=== PATIENT | male | born 1965 | race Hispanic/Latino ===

== ENCOUNTER 2018-03-08 20:24 | Emergency (ER) | payer BC ==
[~2018-03-08] VITALS: Ht 190.5 cm; Wt 139.1 kg
[~2018-03-08 20:24] MED LIST: Z.0.ALLOPURINOL100 M MT; Z.0.INDOMETHACIN50 M MT
[2018-03-08] MEDS ORDERED: GLIPIZIDE5 MG PO (20:46)
[2018-03-08] MEDS ORDERED: FENOFIBRATE145 MG (20:46)
[2018-03-08] MEDS ORDERED: METFORMIN HCL500 MG PO (20:46)
[2018-03-08] MEDS ORDERED: ATORVASTATIN CA20 MG PO (20:46)
[2018-03-08] MEDS ORDERED: FLUORESCEIN SOD(OPTH) 1 MG STRP OP ONE (21:00)
[2018-03-08] MEDS ORDERED: TETRACAINE HCL 0.5% OPTH SOLN 4 ML BTL OP ONE (21:00)
[2018-03-08] MEDS ORDERED: ERYTHROMYCIN (OPTH) 3.5 GM OINT OP ONE (21:00)
[2018-03-08] MEDS ORDERED: TETANUS/DIPHTHERIA TOX ADULT 0.5 ML SYR IM ONE (21:00)
== END 2018-03-08 21:10 | disposition home or self-care (01) ==
LOC: FSED 20:24
DX: S05.01XA Injury of conjunctiva and corneal abrasion without foreign body, right eye, initial encounter (principal); X58.XXXA Exposure to other specified factors, initial encounter; Y99.0 Civilian activity done for income or pay; E11.9 Type 2 diabetes mellitus without complications; Z79.84 Long term (current) use of oral hypoglycemic drugs; E78.5 Hyperlipidemia, unspecified
CPT/HCPCS: 90714; 99282

== ENCOUNTER 2019-02-16 16:48 | Outpatient (RCR) | payer BC ==
[~2019-02-16 16:48] MED LIST changes: +ATORVASTATIN CA20 MG PO; +FENOFIBRATE145 MG; +GLIPIZIDE5 MG PO; +METFORMIN HCL500 MG PO
== END 2019-02-19 ==
LOC: PT 16:48
PROVIDERS: ATTEND Orthopaedic Surgery
DX: M70.61 Trochanteric bursitis, right hip (principal); M25.851 Other specified joint disorders, right hip

== ENCOUNTER 2019-03-03 03:39 | Inpatient (IN) | payer BC ==
[~2019-03-03] VITALS: Ht 195.6 cm; Wt 132.9 kg
[2019-03-03] MEDS ORDERED: SODIUM CHLORIDE 0.9% 1000ML 1,000 ML IV STA (03:46)
[2019-03-03] MEDS ORDERED: ONDANSETRON HCL INJ 2MG/ML 2ML 2 MG/ML VIAL IV STA ×2 (03:46→05:43)
[2019-03-03] MEDS ORDERED: MORPHINE SULFATE INJ 4 MG/ML INJ 1ML IV STA (03:46)
[2019-03-03] MEDS ORDERED: PANTOPRAZOLE 40 MG 10ML VIAL IV STA (03:46)
[2019-03-03] MEDS ORDERED: PANTOPRAZOLE 40 MG 10ML VIAL ONE (03:55)
[2019-03-03] MEDS ORDERED: MORPHINE SULFATE INJ 4 MG/ML INJ 1ML ONE (03:55)
[2019-03-03] MEDS ORDERED: ONDANSETRON HCL INJ 2MG/ML 2ML 2 MG/ML VIAL ONE ×2 (03:55→05:47)
[2019-03-03 04:06] LABS: BASOPHILS # (AUTO) 0.1 (0.0-0.1); BASOPHILS % 0.7 % (0.0-1.0); BILIRUBIN,URINE NEGATIVE (NEGATIVE); CLARITY,URINE CLEAR (CLEAR); COLOR,URINE YELLOW (YELLOW); EOSINOPHILS # (AUTO) 0.1 (0.0-0.4); EOSINOPHILS % 0.9 % (0.0-6.0); HEMATOCRIT 45.5 % (38.2-49.6); KETONES,URINE NEGATIVE (NEGATIVE); LEUKOCYTE ESTERASE ,URINE NEGATIVE (NEGATIVE); LYMPHOCYTES # (AUTO) 1.5 (1.0-3.2); LYMPHOCYTES % 12.3 % (18.0-39.1); MEAN CORPUSCULAR HEMOGLOBIN 31.1 pg (28-32); MEAN CORPUSCULAR HGB CONC 35.2 g/dL (31-35); MEAN CORPUSCULAR VOLUME 88.5 fL (81-99); MONOCYTES # (AUTO) 0.9 (0.2-0.8); MONOCYTES % 6.9 % (4.4-11.3); NEUTROPHILS # (AUTO) 9.7 (2.1-6.9); NEUTROPHILS % 78.7 % (38.7-80.0); NITRITE,URINE NEGATIVE (NEGATIVE); PLATELET COUNT 250 x10e3/uL (140-360); PROTEIN,URINE DIPSTICK NEGATIVE (NEGATIVE); RED BLOOD COUNT 5.14 x10e6/uL (4.3-5.7); RED CELL DISTRIBUTION WIDTH 12.6 % (11.7-14.4); URINE UROBILINOGEN 0.2 mg/dL (0.2 - 1)
[2019-03-03 04:13] LABS: INR 0.88; PARTIAL THROMBOPLASTIN TIME 32.8 seconds (23.8-35.5); PROTHROMBIN TIME 12.4 seconds (11.9-14.5)
[2019-03-03 04:18] LABS: BACTERIA,URINE RARE /HPF; EPITHELIAL CELLS,URINE RARE /LPF; RBC,URINE 0-5 /HPF (0-5); WBC,URINE (MAN) 0-5 /HPF (0-5)
[2019-03-03 04:21] LABS: ALANINE AMINOTRANSFERASE 23 IU/L (0-55); ALBUMIN 3.9 g/dL (3.5-5.0); ALBUMIN/GLOBULIN RATIO 1.2 (0.8-2.0); ALKALINE PHOSPHATASE 112 IU/L (40-150); AMYLASE 66 U/L (25-125); ANION GAP 11.7 mmol/L (8-16); BLOOD UREA NITROGEN 14 mg/dL (7-26); BUN/CREATININE RATIO 14 (6-25); CALCIUM 9.6 mg/dL (8.4-10.2); CARBON DIOXIDE 20 mmol/L (22-29); CHLORIDE 106 mmol/L (98-107); CREATINE KINASE 206 IU/L (30-200); EST GLOMERULAR FILTRATION RATE > 60 ML/MIN (60-); GLUCOSE 172 mg/dL (74-118); LIPASE 28 U/L (8-78); MAGNESIUM 2.3 MG/DL (1.3-2.1); POTASSIUM 3.7 mmol/L (3.5-5.1); SODIUM 134 mmol/L (136-145)
[2019-03-03] MEDS ORDERED: LIDOCAINE VISC 2% SOLN 15 ML UDC PO ONE (05:15)
[2019-03-03] MEDS ORDERED: BELLADONNA ALK/PHENOBARBITAL 5 ML UDC PO ONE (05:15)
[2019-03-03] MEDS ORDERED: MAGNESIUM/ALUMINUM/SIMETHICONE 30 ML UDC PO ONE (05:15)
--- NOTE | 2019-03-03 05:20 | Diagnostic Imaging Report ---
EXAMINATION: CHEST SINGLE (PORTABLE) INDICATION: Pain. COMPARISON: None FINDINGS: TUBES and LINES: None. LUNGS: Lungs are well inflated. Lungs are clear. There is no evidence of pneumonia or pulmonary edema. PLEURA: No pleural effusion or pneumothorax. HEART AND MEDIASTINUM: The cardiomediastinal silhouette is unremarkable. BONES AND SOFT TISSUES: No acute osseous lesion. Soft tissues are unremarkable. UPPER ABDOMEN: No free air under the diaphragm. IMPRESSION: No acute thoracic abnormality. Signed by: Dr. Javan Green M.D. on 03/03/2019 5:17 AM
--- NOTE | 2019-03-03 05:33 | Diagnostic Imaging Report ---
EXAM: CT Abdomen and Pelvis WITH contrast INDICATION: Right upper quadrant pain. COMPARISON: None. TECHNIQUE: Abdomen and pelvis were scanned utilizing a multidetector helical scanner from the lung base to the pubic symphysis after administration of IV contrast. Coronal and sagittal reformations were obtained. Routine protocol was performed. Scan was performed when during portal venous phase. IV CONTRAST: 100 cc Isovue-370 ORAL CONTRAST: Water RADIATION DOSE: Total DLP: 912.41 mGy*cm Estimated effective dose: (DLP x 0.015 x size factor) mSv COMPLICATIONS: None FINDINGS: LINES and TUBES: None. LOWER THORAX: Unremarkable HEPATOBILIARY: The liver measures 24 cm in length. The liver is mildly diffuse hypodense compared to the spleen, consistent with diffuse hepatic diffuse hepatic steatosis. No focal hepatic lesions. No biliary ductal dilation. GALLBLADDER: No radio-opaque stones or sludge. No wall thickening. SPLEEN: No splenomegaly. PANCREAS: No focal masses or ductal dilatation. ADRENALS: No adrenal nodules KIDNEYS/URETERS: Kidneys enhance symmetrically. No hydronephrosis. 1.1 cm low-attenuation lesion in the posterior interpolar region of the left kidney on image 48 consistent with a cyst. No stones. GI TRACT: No abnormal distention, wall thickening, or evidence of bowel obstruction. The appendix is mildly prominent measuring up to 1.1 cm in diameter with ill-defined wall; it contains 2 appendicoliths, and is associated with mild surrounding fat stranding; findings suggestive of early acute appendicitis. PELVIC ORGANS/BLADDER: Unremarkable. LYMPH NODES: No lymphadenopathy. VESSELS: Unremarkable. PERITONEUM / RETROPERITONEUM: No free air or fluid. BONES: There are degenerative changes in the lumbar spine. SOFT TISSUES: Unremarkable. IMPRESSION: 1. Findings suggestive of early acute appendicitis. No abscess formation. Recommend surgical consultation. Signed by: Dr. Javan Green M.D. on 03/03/2019 5:30 AM
[2019-03-03] MEDS ORDERED: HYDROMORPHONE 1MG/1ML INJ IV STA (05:43)
[2019-03-03] MEDS ORDERED: HYDROMORPHONE 2MG/ML 2 MG/ML ML ONE (05:46)
--- NOTE | 2019-03-03 05:50 | NUR ---
PT CONT TO COMPLAIN OF PAIN, AWARE, RECIEVED ORDERS FOR DILAUDID. MEDICATED PER ORDERS, APPENDICITIS ON CT, MD INST NPO AND NOT TO GIVE GI COCKTAIL
--- OUTSIDE RECORDS SUMMARY | 2019-03-03 05:59 | XMS REPORT ---
Author Author [facility] Address Unknown Phone Unavailable Care Team Providers Care Title Searcher Name Role Phone Sean LOPEZ Unavailable Unavailable Problems This patient has no known problems. Allergies, Adverse Reactions, Alerts This patient has no known allergies or adverse reactions. Medications This patient has no known medications. Results Test Description Test Time Test Comments Text Results Atomic Results Result Comments CHEST SINGLE (PORTABLE) 2019-03-03 05:17:00 [facility] [address] [place] [address] Patient Name: ANKIT CHURCH MR #: [id number] : 1965 Age/Sex: 53/M Req #: [id number] Adm Physician: Ordered by: ALONDRA LOPEZ MD Report #: [id number] Location: ER Room/Bed: Procedure: [id number] DX/CHEST SINGLE (PORTABLE) Exam Date: 03/03/19 Exam Time: 0445 REPORT STATUS: Signed EXAMINATION: CHEST SINGLE (PORTABLE) INDICATI ON: Pain. COMPARISON: None FINDINGS: TUBES and LINES: None. LUNGS: Lungs are well inflated. Lungs are clear. There is no evidence of pneumonia or pulmonary edema. PLEURA: No pleural effusion or pneumothorax. HEART AND MEDIASTINUM: The cardiomediastinal silhouette is unremarkable. BONES AND SOFT TISSUES: No acute osseous lesion. Soft tissues are unremarkable. UPPER ABDOMEN: No free air under the diaphragm. IMPRESSION: No acute thoracic abnormality. Signed by: Dr. Javan Green M.D. on 03/03/2019 5:17 AM Dictated By: QUIQUE GREEN MD, MD 6 Transcribed By: SERGEY on 03/03/19516 COPY TO: ALONDRA LOPEZ MD CT ABDOMEN/PELVIS W 2019-03-03 05:17:00 [place] [address] Patient Name: ANKIT CHURCH MR #: [id number] : 1965 Age/Sex: 53/M Req #: [id number] Adm Physician: Ordered by: ALONDRA LOPEZ MD Report #: [id number] Location: ER Room/Bed: Procedure: CT/CT ABDOMEN/PELVIS W Exam Date: 03/03/19 Exam Time: 0440 REPORT STATUS: Signed EXAM: CT Abdomen and Pelvis WITH contrast INDICATION: Right upper quadrant pain. COMPARISON: None. TECHNIQUE: Abdomen and pelvis were scanned utilizing a multidetector helical scanner from the lung base to the pubic symphysis after administration of IV contrast. Coronal and sagittal reformations were obtained. Routine protocol was performed. Scan was performed when during portal venous phase. IV CONTRAST: 100 cc Isovue-370 ORAL CONTRAST: Water RADIATION DOSE: Total DLP: 912.41 mGy*cm Estimated effective dose: (DLP x 0.015 x size factor) mSv COMPLICATIONS: None FINDINGS: LINES and TUBES: None. LOWER THORAX: Unremarkable HEPATOBILIARY: The liver measures 24 cm in length. The liver is mildly diffuse hypodense compared to the spleen, consistent with diffuse hepatic diffuse hepatic steatosis. No focal hepatic lesions. No biliary ductal dilation. GALLBLADDER: No radio- opaque stones or sludge. No wall thickening. SPLEEN: No splenomegaly. PANCREAS: No focal masses or ductal dilatation. ADRENALS: No adrenal nodules KIDNEYS/URETERS: Kidneys enhance symmetrically. No hydronephrosis. 1.1 cm low-attenuation lesion in the posterior interpolar region of the left kidney on image 48 consistent with a cyst. No stones. GI TRACT: No abnormal distention, wall thickening, or evidence of bowel obstruction. The appendix is mildly prominent measuring up to 1.1 cm in diameter with ill-defined wall; it contains 2 appendicoliths, and is associated with mild surrounding fat stranding; findings suggestive of early acute appendicitis. PELVIC ORGANS/BLADDER: Unremarkable. LYMPH NODES: No lymphadenopathy. VESSELS: Unremarkable. PERITONEUM / RETROPERITONEUM: No free air or fluid. BONES: There are degenerative changes in the lumbar spine. SOFT TISSUES: Unremarkable. IMPRESSION: 1. Findings suggestive of early acute appendicitis. No abscess formation. Recommend surgical consultation. Signed by: Dr. Javan Green M.D. on 03/03/2019 5:30 AM Dictated By: QUIQUE GREEN MD, MD 9 Transcribed By: SERGEY on 03/03/19529 COPY TO: ALONDRA LOPEZ MD
[2019-03-03] MEDS ORDERED: HYDROMORPHONE 1MG/1ML INJ IV PRN (06:00)
[2019-03-03] MEDS ORDERED: ONDANSETRON HCL INJ 2MG/ML 2ML 2 MG/ML VIAL IV PRN (06:00)
[2019-03-03] MEDS ORDERED: DEXTROSE 50% SYRINGE 50 ML IV PRN (06:00)
[2019-03-03] MEDS ORDERED: SODIUM CHLORIDE 0.9% 1000ML 1,000 ML ONE (06:03)
[2019-03-03] MEDS ORDERED: IOPAMIDOL 370 MG/ML 200 ML INFUS..BTL INJ ONE (06:05)
[2019-03-03] MEDS ORDERED: SODIUM CHLORIDE 0.9% 50ML 50 ML ONE (06:05)
[2019-03-03] MEDS: PIPER-TAZ 3.375 GM 50 ML IV SCH ×3 (06:10→18:00)
[2019-03-03] MEDS: SODIUM CHLORIDE 0.9% 1000ML 1,000 ML IV SCH ×2 (06:10→13:49)
--- NOTE | 2019-03-03 06:15 | NUR ---
Patient received via stretcher from ER. AAO x 4. Patient had no complaints of pain. No signs of respiratory distress. Patient oriented to room, call light and plan of care. Fall precautions implemented. Patient instructed to call for assistance when needed. Call light within reach.
[2019-03-03 06:22] VITALS: BP 169/90
--- NOTE | 2019-03-03 06:40 | NUR ---
SPOKE TO EMETERIO WITH SIZE GRIER RENTALS. SPECIALITY BED ORDERED FOR PATIENT WHO WAS VERY TALL. CONFIRMATION#[id number]. BED TO BE DELIVERED TODAY 03/03/19. DELIVERY TO INCLUDE OPERATION INSTRUCTION.
--- NOTE | 2019-03-03 07:10 | NUR ---
Dr.D. Macdonald notified and aware of "Stat Consult". Reason: Appendicitis.
[2019-03-03] MEDS: INSULIN LISPRO 100 UNIT/1 ML 3ML VIAL SQ SCH ×4 (07:30→21:00)
[2019-03-03 08:31] VITALS: BP 145/77
[2019-03-03 11:10] VITALS: BP 145/77
[2019-03-03 11:55] VITALS: BP 148/84
[2019-03-03] MEDS ORDERED: MORPHINE SULFATE INJ 10 MG/ML ONE (13:43)
[2019-03-03] MEDS ORDERED: MIDAZOLAM HCL 2 MG/2 ML VIAL ONE (13:43)
[2019-03-03] MEDS ORDERED: FENTANYL CITRATE/PF 100MCG/2 ML INJ ONE ×2 (13:43→21:21)
[2019-03-03] MEDS ORDERED: BUPIVACAINE 0.25%/EPI 30ML SDV INJ ONE (14:59)
[2019-03-03 16:20] VITALS: BP 162/96
[2019-03-03] MEDS ORDERED: ACETAMINOPHEN 325 MG TAB PO PRN (19:00)
[2019-03-03 20:00] VITALS: BP 119/58
--- NOTE | 2019-03-03 21:34 | NUR ---
received pt from PACU, awake and alert, MAMI drain to right lower quadrant with small amount of serosangunious fluid in container, 2 trochar sites to abdomen with bandages in place C/D/I, pt c/o pain 06/01 to abdomen, pain medication on board, bed in lowest and locked position, family at bedside, call light in reach
[2019-03-03] MEDS: HYDROMORPHONE 2MG/ML 2 MG/ML ML IV PRN (21:52)
--- NOTE | 2019-03-03 23:33 | Consultation ---
DATE OF CONSULTATION: 03/03/2019 CHIEF COMPLAINT: Abdominal pain. HISTORY OF PRESENT ILLNESS: The patient is a 53-year-old male with 1-day history of pain in lower abdomen with nausea, vomiting, and subjective fever. No diarrhea. PAST MEDICAL HISTORY: Positive for diabetes. ALLERGIES: HE HAS NO DRUG ALLERGIES. Social. HABITS: He denies smoking or alcohol abuse. REVIEW OF SYSTEMS: No chest pain, shortness of breath, or cough. PHYSICAL EXAMINATION: VITAL SIGNS: Stable. He is afebrile. GENERAL: The patient is awake, alert, in mild to moderate discomfort. HEENT: Sclerae nonicteric. NECK: Supple. LUNGS: Clear. HEART: Regular rate and rhythm. ABDOMEN: Soft with some guarding tenderness in the lower abdomen with mild rebound in the right and left lower quadrant. LABORATORY DATA: The patient's creatinine is 1.0. Liver function tests within normal limits. White cell count is 12 and INR of 0.8. CT scan show appendicolith and fat stranding around the appendix, which is dilated. ASSESSMENT: Acute appendicitis. PLAN: Laparoscopic appendectomy. Attendant risks discussed. Caleb Macdonald MD DNL/MODL /[id number]
[2019-03-04] VITALS (9 sets, daily range): BP systolic 122–145; BP diastolic 73–89
[2019-03-04] MEDS: PIPER-TAZ 3.375 GM 50 ML IV SCH ×4 (00:15→18:29)
[2019-03-04] MEDS: HYDROMORPHONE 2MG/ML 2 MG/ML ML IV PRN ×4 (02:06→19:30)
[2019-03-04] MEDS: SODIUM CHLORIDE 0.9% 1000ML 1,000 ML IV SCH ×2 (02:07→05:49)
--- NOTE | 2019-03-04 02:18 | History and Physical ---
HISTORY OF PRESENT ILLNESS: A 53-year-old male with past medical history positive for hypertension and diabetes, came here with abdominal pain. He was diagnosed with acute appendicitis, going for surgery right now. REVIEW OF SYSTEMS: CARDIOVASCULAR: No chest pain or palpitation. RESPIRATORY: No shortness of breath. No cough. GASTROINTESTINAL: No nausea. No vomiting. No diarrhea. He has abdominal pain. ALLERGIES: HE IS NOT ALLERGIC TO ANY MEDICATION. SOCIAL HISTORY: He does not smoke. Does not drink. PAST MEDICAL HISTORY: Hypertension and diabetes. PHYSICAL EXAMINATION: VITAL SIGNS: Blood pressure 162/96, temperature 98.3, heart rate 70 per minute, respiratory rate 18 per minute, oxygen saturation 98%. HEART: Showed regular rhythm. No murmur or added sound. LUNGS: Clear bilaterally. ABDOMEN: Soft with tenderness in the right lower quadrant. LABORATORY DATA: On BMP; sodium 134, potassium 3.7, chloride 106, CO2 of 20, BUN 14, creatinine 1.80, glucose 172. On CBC; white blood count 12.2, hemoglobin 16.0, hematocrit 45.5, platelet count 250,000. PT 12.4, INR 0.88, PTT 32.8. AST 16, ALT 23, total bilirubin 0.6, alkaline phosphatase 112. IMPRESSION: 1. Acute appendicitis. 2. Hypertension. 3. Diabetes mellitus type 2. PLAN OF TREATMENT: Continue normal saline at 125 mL an hour, Zosyn 3.375 g IV q.6 hours. Continue amlodipine 5 mg daily. Continue Tylenol 650 mg p.o. q.4 hours as needed for pain or fever. Continue monitoring blood sugar before meals and at bedtime. Continue to followup after surgery. The patient is going for surgery right now. MD ALEISHA Hobbs/JIML /[id number]
--- NOTE | 2019-03-04 03:14 | Operative Report ---
DATE OF PROCEDURE: 03/03/2019 SURGEON: Caleb Macdonald MD PREOPERATIVE DIAGNOSIS: Appendicitis. POSTOPERATIVE DIAGNOSIS: Gangrenous appendicitis. OPERATIVE PROCEDURE: Laparoscopic appendectomy. ANESTHESIA: General, Dr. Chung. INDICATION: A 53-year-old male with 1-day history of pain in the lower abdomen with CT scan confirming appendicitis with fecalith. The patient had consented for laparoscopic appendectomy. Attendant risks discussed. PROCEDURE FINDING: Gangrenous of the appendix with perforated tip removal. DESCRIPTION OF PROCEDURE: The patient was brought to the OR and intubated. Abdomen was prepped with alcohol and draped in sterile fashion. Infraumbilical incision is made and a 12 mm port inserted. Insufflation began under direct vision, all the port sites placed in the right upper quadrant and right lower quadrant. Appendix is retrocecal, it is mobilized with blunt and sharp dissection by mobilizing the cecum medially dividing the white line of Toldt at the cecal level. Next, the appendix is isolated with blunt and sharp dissection. We proceeded to mobilize this appendix from the retrocecal location. The tip was somewhat adherent and we found detachment from the retroperitoneum, there was a small opening, leaking some fecal material, which was controlled with suctioning. The appendix was mobilized by dividing the mesoappendix. Next, appendix was then transected with the Endo-SAYRA stapler white load. Appendix was removed and placed in an Endopouch and retrieved out the peritoneal cavity. The retrocecal area is irrigated with copious saline solution. Hemostasis is achieved. A drain of 19-Slovak Otoniel is placed in the retrocecal area and taken out to the right lower quadrant port site. All the ports removed under direct vision. Fascia closure with 0 Vicryl. Skin was closed with subcuticular stitch. The patient was extubated, transported to recovery room. ESTIMATED BLOOD LOSS: 5 mL. Caleb Macdonald MD DNL/MODL /[id number]
[2019-03-04 06:38] LABS: BASOPHILS % 0.2 % (0.0-1.0); EOSINOPHILS # (AUTO) 0.1 (0.0-0.4); EOSINOPHILS % 0.4 % (0.0-6.0); HEMATOCRIT 43.9 % (38.2-49.6); HEMOGLOBIN 14.6 g/dL (14.0-18.0); LYMPHOCYTES # (AUTO) 0.7 (1.0-3.2); LYMPHOCYTES % 3.8 % (18.0-39.1); MEAN CORPUSCULAR HEMOGLOBIN 30.4 pg (28-32); MEAN CORPUSCULAR HGB CONC 33.3 g/dL (31-35); MEAN CORPUSCULAR VOLUME 91.3 fL (81-99); MONOCYTES # (AUTO) 1.1 (0.2-0.8); MONOCYTES % 6.2 % (4.4-11.3); NEUTROPHILS # (AUTO) 16.2 (2.1-6.9); NEUTROPHILS % 88.9 % (38.7-80.0); PLATELET COUNT 232 x10e3/uL (140-360); RED BLOOD COUNT 4.81 x10e6/uL (4.3-5.7); RED CELL DISTRIBUTION WIDTH 12.5 % (11.7-14.4)
[2019-03-04 06:45] LABS: ANION GAP 11.1 mmol/L (8-16); BLOOD UREA NITROGEN 10 mg/dL (7-26); BUN/CREATININE RATIO 9 (6-25); CALCIUM 9.1 mg/dL (8.4-10.2); CARBON DIOXIDE 26 mmol/L (22-29); CHLORIDE 101 mmol/L (98-107); CREATININE, SERUM 1.06 mg/dL (0.72-1.25); EST GLOMERULAR FILTRATION RATE > 60 ML/MIN (60-); GLUCOSE 168 mg/dL (74-118); POTASSIUM 4.1 mmol/L (3.5-5.1); SODIUM 134 mmol/L (136-145)
[2019-03-04] MEDS: INSULIN LISPRO 100 UNIT/1 ML 3ML VIAL SQ SCH ×4 (07:30→21:00)
[2019-03-04] MEDS: GLIPIZIDE 5 MG TAB PO SCH (08:00)
[2019-03-04] MEDS: METFORMIN HCL 500 MG TAB PO SCH ×2 (08:59→17:00)
[2019-03-04] MEDS: AMLODIPINE BESYLATE 5 MG TAB PO SCH (09:00)
[2019-03-04] MEDS: DOCUSATE SODIUM LIQD 100 MG/10 ML UDC NG SCH ×2 (12:30→18:29)
--- NOTE | 2019-03-04 18:38 | Progress Note ---
DATE: Internal Medicine Progress Note SUBJECTIVE: The patient had appendectomy done yesterday, complaining of pain today. PHYSICAL EXAMINATION: VITAL SIGNS: Blood pressure 125/81, temperature 97.4, heart rate 66 per minute, respiratory rate 19 per minute, and oxygen saturation 98%. HEART: Regular rhythm. Normal S1 and S2 sounds. LUNGS: Clear bilaterally. ABDOMEN: Soft. LABORATORY DATA: BMP; sodium 134, potassium 4.1, chloride 101, CO2 of 26, BUN 10, creatinine 1.06, glucose 168. On CBC, white blood count 18.2, hemoglobin 14.6, hematocrit 43.9, platelet count 232,000. PT 12.4, PTT 32.8, INR 0.88, AST 16, ALT 23, total bilirubin 0.6, alkaline phosphatase 112. IMPRESSION: 1. Acute appendicitis. 2. Leukocytosis. 3. Uncontrolled diabetes mellitus type 2. PLAN OF TREATMENT: Continue Zosyn 3.375 g IV q.6 hours. Continue sodium chloride 125 mL an hour, Zofran 4 mg IV q.4 hours as needed, metformin 500 mg twice a day. Continue monitoring blood sugar before meals and at bedtime. Continue glipizide 5 mg daily. Continue Tylenol 650 mg q.4 hours as needed for pain or fever, Colace 100 mg twice a day, amlodipine 5 mg daily, Dilaudid 1 mg IV q.4 hours as needed. We are going to repeat a CBC tomorrow. If he is tolerating liquid diet, we going to advance to mechanical soft diet. Tentative discharge tomorrow MD ALEISHA Hobbs/EDUARDO /[id number]
--- NOTE | 2019-03-04 19:10 | NUR ---
received patient aaox3, sitting in recliner. call light within reach. will continue to monitor patient.
[2019-03-04] MEDS ORDERED: ONDANSETRON HCL INJ 2MG/ML 2ML 2 MG/ML VIAL ONE (19:28)
[2019-03-04] MEDS ORDERED: SEVOFLURANE INHAL SOLN 250 ML PEN BTL ONE (19:28)
[2019-03-04] MEDS ORDERED: GLYCOPYRROLATE INJ 1MG/ 5 ML SYR ONE (19:28)
[2019-03-04] MEDS ORDERED: NEOSTIGMINE 5 MG/5ML SYR ONE (19:28)
[2019-03-04] MEDS ORDERED: ROCURONIUM BROMIDE 10 MG/ML 5ML VIAL ONE (19:28)
[2019-03-04] MEDS ORDERED: LIDOCAINE HCL 2% LOCAL INJ 5 ML SDV VIAL INJ ONE (19:28)
[2019-03-04] MEDS ORDERED: DEXAMETHASONE SOD PHOS INJ 4 MG/ML VIAL ONE (19:28)
[2019-03-04] MEDS ORDERED: PROPOFOL IV EMULSION 10 MG/ML 20 ML VIAL ONE (19:28)
[2019-03-05] VITALS (8 sets, daily range): BP systolic 122–148; BP diastolic 59–85
[2019-03-05] MEDS: HYDROMORPHONE 2MG/ML 2 MG/ML ML IV PRN ×5 (00:53→18:13)
[2019-03-05] MEDS: PIPER-TAZ 3.375 GM 50 ML IV SCH ×4 (00:53→18:13)
[2019-03-05 05:00] LABS: BASOPHILS # (AUTO) 0.1 (0.0-0.1); BASOPHILS % 0.6 % (0.0-1.0); EOSINOPHILS # (AUTO) 0.1 (0.0-0.4); EOSINOPHILS % 0.7 % (0.0-6.0); HEMOGLOBIN 14.2 g/dL (14.0-18.0); LYMPHOCYTES # (AUTO) 1.6 (1.0-3.2); LYMPHOCYTES % 15.4 % (18.0-39.1); MEAN CORPUSCULAR HEMOGLOBIN 30.8 pg (28-32); MEAN CORPUSCULAR HGB CONC 33.8 g/dL (31-35); MEAN CORPUSCULAR VOLUME 91.1 fL (81-99); MONOCYTES # (AUTO) 1.1 (0.2-0.8); MONOCYTES % 10.4 % (4.4-11.3); NEUTROPHILS # (AUTO) 7.5 (2.1-6.9); NEUTROPHILS % 72.5 % (38.7-80.0); PLATELET COUNT 196 x10e3/uL (140-360); RED BLOOD COUNT 4.61 x10e6/uL (4.3-5.7); RED CELL DISTRIBUTION WIDTH 12.6 % (11.7-14.4)
--- NOTE | 2019-03-05 07:00 | NUR ---
RECEIVED BEDSIDE SHIFT REPORT FROM PRICING CLERK RN. PT DENIES NEEDS AT THIS TIME.
[2019-03-05] MEDS: INSULIN LISPRO 100 UNIT/1 ML 3ML VIAL SQ SCH ×4 (07:30→20:28)
[2019-03-05] MEDS: METFORMIN HCL 500 MG TAB PO SCH ×2 (08:00→17:00)
[2019-03-05] MEDS: GLIPIZIDE 5 MG TAB PO SCH (08:00)
[2019-03-05] MEDS: AMLODIPINE BESYLATE 5 MG TAB PO SCH (09:00)
[2019-03-05] MEDS: DOCUSATE SODIUM LIQD 100 MG/10 ML UDC NG SCH ×2 (09:00→17:00)
--- NOTE | 2019-03-05 09:15 | NUR ---
PT REFUSED ALL MORNING MEDICATIONS. PT STATED HE DOESN'T WANT ANY BP, BLOOD SUGAR OR STOOL SOFTENER MEDICINES.
--- NOTE | 2019-03-05 10:25 | NUR ---
RECHECKED PT BLOOD SUGAR- 139 NOTED.
[2019-03-05] MEDS ORDERED: ONDANSETRON HCL 4 MG ORAL DISINTEGRATING TAB PO PRN (16:45)
--- NOTE | 2019-03-05 19:00 | NUR ---
BEDSIDE SHIFT REPORT GIVEN TO THE CONSULTING SYSTEMS ENGINEER RN. PT DENIED FURTHER NEEDS.
[2019-03-05] MEDS ORDERED: HYDROCODONE/APAP 5MG-325MG TAB PO PRN (19:30)
--- NOTE | 2019-03-05 20:16 | NUR ---
dr. cruz rounded, patient eager to be discharged. cleared for discharge from dr. cruz standpoint. prescription in chart. awaiting call back from dr. hogan for discharge orders.
--- NOTE | 2019-03-05 20:27 | NUR ---
lashon drain removed, patient tolerated well. pressure dressing applied.
--- NOTE | 2019-03-05 21:15 | NUR ---
patient discharged home via private auto in stable condition. discharge packet and prescription given to patient, copy signed and placed in chart. iv to left wrist removed with cath tip intact, patient tolerated well. no needs or questions voiced.
== END 2019-03-05 21:18 | disposition home or self-care (01) | DRG 343 ==
LOC: ER 03:39 → ERHOLD 05:56 → MED/SURG2 06:10
PROVIDERS: ADMIT Internal Medicine; ATTEND Internal Medicine
PROC: 0DTJ4ZZ Resection of Appendix, Percutaneous Endoscopic Approach (ICD-10-PCS; principal; 2019-03-03 15:00)
DX: K35.891 Other acute appendicitis without perforation, with gangrene (principal); I10 Essential (primary) hypertension; E11.65 Type 2 diabetes mellitus with hyperglycemia; D72.829 Elevated white blood cell count, unspecified
CPT/HCPCS: 36415; 71045; 74177; 80048; 80053; 81001; 82150; 82550; 82553; 82948; 83690; 83735; 84484; 85025; 85610; 85730; 88304; 93005; 96374; 96375; 99284; J1100; J2001; J2250; J2270; J2405; J2543; J7030; Q9967

== ENCOUNTER 2019-05-23 14:14 | Emergency (ER) | payer BC ==
[~2019-05-23] VITALS: Ht 195.6 cm; Wt 132.9 kg
--- NOTE | 2019-05-23 14:28 | NUR ---
DR. HENDERSON AT BEDSIDE AT THIS TIME FOR PT EVAL, REPEATING EKG AT THIS TIME. PT VERY ANXIOUS AND MOVING DURING INITIAL EKG.
--- NOTE | 2019-05-23 14:30 | NUR ---
PT CONTINUES TO BE ANXIOUS AND MOVING DURING EKG, STATES "I'LL JUST LEAVE NOW SINCE I'M NOT HAVING A HEART ATTACK", INFORMED OF RISKS AND BENEFITS OF LEAVING AMA, STATES "I JUST NEED TO LEAVE CAUSE THERES SOMEONE THAT WORKS HERE THAT I KNOW", PT INFORMED OF PATIENT CONFIDENTIALITY, STATES "THAT'S BULLSHIT, I JUST NEED TO GO, I'M FINE".
--- NOTE | 2019-05-23 14:35 | NUR ---
PT SIGNED AMA FORM, PT WAS INFORMED ABOUT RISKS AND BENEFITS OF DISCONTINUING HOSPITAL STAY WITHOUT HAVING A THOROUGH ASSESSMENT AND EVALUATION. INFORMED DR. HENDERSON AND YSABEL COLON.
[2019-05-23] MEDS ORDERED: ASPIRIN 81 MG CHEW TAB PO ONE (15:00)
== END 2019-05-23 14:40 | disposition left against medical advice (07) ==
LOC: ER 14:16
DX: R07.89 Other chest pain (principal); E11.9 Type 2 diabetes mellitus without complications; E78.5 Hyperlipidemia, unspecified; M10.9 Gout, unspecified
CPT/HCPCS: 93005; 99282